=== PATIENT | female | born 1960 | race Caucasian/White ===

== ENCOUNTER 2017-01-26 18:20 | Emergency (ER) | payer OTHER ==
[2017-01-26 18:53] LABS: EOSINOPHIL (%) 0 % (0-5); HEMATOCRIT 44.3 % (36.0-46.0); IMMATURE GRANULOCYTE COUNT 0.1 K/uL; INSTRUMENT ABS NEUTROPHIL CT 4.5 K/uL; LYMPHOCYTE COUNT 1.7 K/uL (1.0-2.8); MCH 28.9 PG (29.0-34.0); MCHC 32.7 G/DL (30.0-36.0); MCV 88.2 FL (83-99); MEAN PLAT.VOLUME 9.8 uM^3 (9.5-12.4); MONOCYTE (%) 7.6 % (3-12); MONOCYTE COUNT 0.5 K/uL (0-0.8); NEUTROPHIL (%) 66.8 % (45-76); NEUTROPHIL COUNT 4.5 K/uL (1.8-6.4); PLATELET COUNT 217 K/uL (156-360); RBC DIS.WIDTH-CV 13.7 % (11.8-14.6); RBC DIS.WIDTH-SD 44.2 % (39-53); RED BLOOD COUNT 5.02 M/uL (3.80-5.20); WHITE BLOOD COUNT 6.7 K/uL (4.1-10.2)
[2017-01-26 19:00] LABS: AMYLASE 76 IU/L (1-118)
[2017-01-26 19:01] LABS: CHLORIDE 104 mEq/L (99-109); SODIUM 139 mEq/L (136-147)
[2017-01-26 19:02] LABS: GLUCOSE 99 mg/dL (70-99)
[2017-01-26 19:04] LABS: ANION GAP 11 MEQ/L (2-14)
[2017-01-26 19:05] LABS: SERUM ETHYL ALCOHOL < 10 mg/dL
[2017-01-26 19:07] LABS: UREA NITROGEN (BUN) 16 mg/dL (9-23)
[2017-01-26 19:09] LABS: LIPASE 81 U/L (1.0-51.0)
[2017-01-26 19:10] LABS: GFR ESTIMATE (CALCULATED) > 59 mL/min/
[2017-01-26 20:00] VITALS: BP 159/80
[2017-01-26] MEDS ORDERED: PERCOCET 5/31 TABLET PO (21:26)
== END 2017-01-26 22:22 | disposition home or self-care (01) ==
LOC: TRA 18:20
PROVIDERS: Emergency Medicine
PROC: 0PSHXZZ Reposition Right Radius, External Approach (ICD-10-PCS; principal; 2017-01-26)
PROC: 2W3CX1Z Immobilization of Right Lower Arm using Splint (ICD-10-PCS; principal; 2017-01-26)
DX: S62.101A Fracture of unspecified carpal bone, right wrist, initial encounter for closed fracture (principal); V47.5XXA Car driver injured in collision with fixed or stationary object in traffic accident, initial encounter; Y92.488 Other paved roadways as the place of occurrence of the external cause
CPT/HCPCS: 71010; 72040; 73090; 73100; 80048; 81003; 82150; 83690; 85025; 86850; 86900; 86901; 99281; 99285; G0480; J1170; J2405